=== PATIENT | male | born 1970 | race Caucasian/White ===

== ENCOUNTER 2024-10-01 06:14 | Day surgery (SDC) | payer OTHER ==
[2024-10-01] VITALS (199 sets, daily range): BP systolic 85–165; BP diastolic 59–97
[~2024-10-01] VITALS: Ht 167.6 cm; Wt 83.9 kg
--- NOTE | 2024-10-01 07:00 | NUR ---
Patient arrived to the [facility]R suite, identification and demographics confirmed. Patient to room 10, AAO and ambulatory vitals obtained, ID/allergy/fall bands placed, changed into hospital gown, procedure and timeline explained. All questions answered, patient presents no concerns at this time.
[2024-10-01] MEDS ORDERED: PANTOPRAZOLE SODIUM Sesquihydr 40 MG/TAB PO PRN (07:30)
[2024-10-01] MEDS ORDERED: cloNIDine HCL 0.1 MG/TAB PO PRN (07:30)
[2024-10-01] MEDS ORDERED: LACTATED RINGER'S 1,000 ML IV PRN ×3 (07:30→19:00)
[2024-10-01] MEDS ORDERED: SCOPOLAMINE 1.5 MG DIS TD PRN (07:30)
[2024-10-01] MEDS ORDERED: diazePAM 5 MG/TAB PO PRN ×2 (07:30→08:30)
[2024-10-01] MEDS ORDERED: CYANOCOBALAMIN 500 MCG/TAB ( B12) PO PRN (07:30)
[2024-10-01] MEDS ORDERED: FAMOTIDINE 20 MG/TAB PO PRN (07:30)
[2024-10-01] MEDS ORDERED: ALBUTEROL SULFATE 2.5 MG VIAL IN PRN (07:30)
--- NOTE | 2024-10-01 07:33 | NUR ---
Dr. Swanson telephoned with patient intake information including usage, dose, last dose/time taken and initial vital signs. Patient history and allergies reviewed with MD. Orders received for 10 mg PO Valium and 0.3 mg PO Clonidine now. Will reassess per protocol in 1.5 hours and update MD with assessment and vitals.
[2024-10-01] MEDS ORDERED: ASCORBIC ACID 4,000 MG in SODIUM CHLORIDE 0.9% 1,000 ML IV SCH (08:00)
[2024-10-01 08:22] LABS: BASO% 0.5 % (0-3); EOS% 7.6 % (0-8); HEMATOCRIT 45.4 % (39.0-50.0); HEMOGLOBIN 14.1 g/dl (14.0-18.0); IMMATURE GRANULOCYTES 0.2 % (0.0-5.0); LYMPH% 24.5 % (15-41); MEAN CELL VOLUME 96.2 fL CALC (80.0-100.0); MEAN CORPUSCULAR HGB 29.9 pG CALC (26.0-32.0); MEAN CORPUSCULAR HGB CONC 31.1 g/dL CAL (32.0-36.0); MONO% 8.2 % (2-13); NEUT# 3.6 thou/uL (1.82-7.42); RED BLOOD COUNT 4.72 mill/uL (4.70-6.10); RED CELL DISTRI WIDTH 12.3 % (11.5-15.5)
[2024-10-01] MEDS ORDERED: THIAMINE HCL 100 MG/ML 2ML VIAL IV PRN (09:00)
[2024-10-01] MEDS ORDERED: cloNIDine HYDROCHLORIDE 100 MCG/ML 10 ML INJ IV PRN (09:00)
[2024-10-01] MEDS ORDERED: NALTREXONE HCL 50 MG/TAB VT PRN (09:00)
[2024-10-01] MEDS ORDERED: PROPOFOL 10 MG/ML 100ML VIAL IV PRN (09:00)
[2024-10-01] MEDS ORDERED: ONDANSETRON HCl 4 MG/2 ML SDV IV PRN ×3 (09:00→19:00)
[2024-10-01] MEDS ORDERED: cloNIDine HCL 0.1 MG/TAB VT PRN (09:00)
[2024-10-01] MEDS ORDERED: MIDAZOLAM HCL 2 MG/2 ML VIAL IV PRN (09:00)
[2024-10-01] MEDS ORDERED: LIDOCAINE HCL 1% (10MG/ML) 100 MG/10 ML MDV IV PRN (09:00)
[2024-10-01] MEDS ORDERED: DEXAMETHASONE SODIUM PHOSPHATE PF 10 MG/ML SDV IV PRN ×2 (09:00→19:00)
[2024-10-01] MEDS ORDERED: ROCURONIUM BROMIDE 10 MG/ML 5ML VIAL IV PRN (09:00)
[2024-10-01] MEDS ORDERED: STERILE WATER FOR IRRIGATION 1,000 ML BTL IR PRN (09:00)
[2024-10-01] MEDS ORDERED: DiphenhydrAMINE HCL 50 MG/ML SDV IV PRN (09:00)
[2024-10-01] MEDS ORDERED: MAGNESIUM SULFATE HEPTAHYDRATE 100 ML IV PRN (09:00)
[2024-10-01] MEDS ORDERED: LIDOCAINE HCL 1% (10MG/ML) 100 MG/10 ML MDV VT PRN ×2 (09:00)
[2024-10-01] MEDS ORDERED: diazePAM 5 MG/TAB VT PRN (09:00)
[2024-10-01] MEDS ORDERED: SUCCINYLCHOLINE CHLORIDE 20 MG/ML 10ML VIAL IV PRN (09:00)
[2024-10-01] MEDS ORDERED: OCTREOTIDE ACETATE 100 MCG/VIAL SDV SC PRN (09:00)
[2024-10-01] MEDS ORDERED: PROPOFOL 100 ML IV PRN (09:00)
--- NOTE | 2024-10-01 09:00 | NUR ---
Patients vital signs within pre-treatment parameters for 1.5 hour recheck. No indication for additional Valium or Clonidine as patient is resting comfortably and vital signs are within range. Patient resting comfortably in bed. Easily aroused, maintains focus, and drifts back to sleep. No signs of active withdrawal or distress noted at this time. Continuous SPO2, rhythm, and respiratory monitoring initiated. IVF @ 250 mL/HR, room air, VSS.
[2024-10-01] MEDS ORDERED: LISINOPRIL20 M1 PO (09:04)
[2024-10-01] MEDS ORDERED: PHENYLEPHRINE HCL 10 MG/ML VIAL ONE (09:22)
[2024-10-01] MEDS ORDERED: SODIUM CHLORIDE 0.9% 250 ML IV ONE (09:22)
[2024-10-01 09:43] LABS: ALBUMIN 4.3 g/dL (3.2-5.0); BILIRUBIN, TOTAL 0.6 mg/dL (0.2-1.3); POTASSIUM 5.1 mmol/l (3.5-5.1)
--- NOTE | 2024-10-01 11:35 | NUR ---
Induction Note Patient to [facility]R procedure room. Time out performed at 1054. Patient placed on monitors, Brianna hugger, bilateral wrist restraints applied for ET tube protection. Versed 5mg given IV push at 1126 Tourniquet applied to right arm Lidocaine 100mg given [id number] IV push followed by Rocoronium 10mg at 1128 IV push and held for 90 seconds. Propofol bolus of 120mg given at 1129 IV push. Succinylcholine 80mg given IV push at 1130. Smooth intubation with 7.5 ETT. Positive CO2. Positive Auscultation for air exchange. Patient placed on ventilator for spontaneous ventilation. Placed on Propofol IV drip at 1131. OG inserted. Positive air on auscultation. Positive gastric content. Stomach washed at this time. Naltrexone 50mg given via OG tube with Clonidine 0.2 mg given via OG Tube. OG clamped for 45 minutes. Will monitor patient for symptoms of withdrawal and adjust propfol accordingly.
--- NOTE | 2024-10-01 12:15 | NUR ---
OG open note OG open at this time. Gastric content draining into drainage bag. OG to drain for 45 minutes. Propofol will be titrated down based on patient.
--- NOTE | 2024-10-01 13:00 | NUR ---
OG close note Stomach washed at this time. Naltrexone 50 mg with Clonidine 0.2 mg via OG tube. OG will be clamped for 45 minutes.
--- NOTE | 2024-10-01 14:30 | NUR ---
OG close note Stomach washed at this time. Naltrexone 50 mg with Clonidine 0.2 mg via OG tube. OG will be clamped for 45 minutes.
[2024-10-01] MEDS ORDERED: CLONIDINE0.1 MG PO (16:25)
[2024-10-01] MEDS ORDERED: KLONOPIN2 MG PO (16:25)
[2024-10-01] MEDS ORDERED: NALTREXONE50 MG PO (16:25)
--- NOTE | 2024-10-01 16:30 | NUR ---
OG close note Stomach washed at this time. Naltrexone 12.5 mg with Clonidine 0 mg via OG tube. OG will be clamped for 45 minutes.
--- NOTE | 2024-10-01 17:35 | NUR ---
Extubation note Closing medications given Benadryl 50mg IV push, Decadron 10mg IV push,Magnesium 4 grams IV, Zofran 8mg IV push, Octreotide 100mcg SC. Stomach washed out prior to extubation. Suctioned gastric content. OG removed. Patient extubated. Propofol Discontinued. Wrist restraints removed. Brianna hugger Removed. See ANR Moderate sedate recovery record for further notes and assessment.
[2024-10-01] MEDS ORDERED: LORazepam 2 MG/ML IV PRN ×2 (19:00)
[2024-10-01] MEDS ORDERED: ACETAMINOPHEN 1,000 MG/100 ML VIAL IV PRN (19:00)
[2024-10-01] MEDS ORDERED: HALOPERIDOL LACTATE 5 MG/ML SDV IV PRN (19:00)
[2024-10-01] MEDS ORDERED: ACETAMINOPHEN 500 MG TAB PO PRN (19:00)
[2024-10-01] MEDS ORDERED: PROMETHAZINE HCL 12.5 MG in SODIUM CHLORIDE 0.9% 50 ML IV PRN (19:00)
[2024-10-01] MEDS ORDERED: KETOROLAC TROMETHAMINE 30 MG/ML SDV IV PRN (19:00)
[2024-10-01] MEDS ORDERED: PROMETHAZINE HCL 25 MG in SODIUM CHLORIDE 0.9% 50 ML IV PRN (19:00)
--- NOTE | 2024-10-01 19:10 | NUR ---
RECEIVED REPORT FROM ANR NURSE. PT TRANSFERRED TO RM 89 VIA BED. PT IS SLEEPING AT THSI TIME BUT DOES CONTINUE TO MOVE AROUND IN BED. PT TOO DISORIENTED AND DROWSY TO FOLLOW COMMANDS AT THIS TIME. NASAL CANNULA IN PLACE ON 2L O2. PT BREATH SOUNDS CLEAR, RESPIRATIONS EVEN AND UNLABORED. SHREDDED FILLER CIGAR MAKER MACHINE AND ANIMAL MAINTENANCE SUPERVISOR DID REPOSTION PT IN BED TO SEMI FOLWERS. SUCTION USED TO CLEAR OUT ORAL CAVITY OF SECRETIONS. VSS. NO S/S OF DISTRESS. IVF RUNNING PER EMAR. IV SITES APPEAR HEALTHY AND INTACT. BED ALARM ON AND SAFETY PRECAUTIONS IN PLACE.
--- NOTE | 2024-10-01 20:29 | NUR ---
PT CONTINUES TO TOSS AND TURN IN BED, TRYING TO BRING LEGS OVER RAILINGS. DID ADMINISTERED MEDICAITN PER EMAR FOR ZOE[facility], PT IS TOO DISORIENTED TO FOLLOW COMMANDS AT THIS TIME OR REST. MEDICATION HAS NOT BEEN EFFECTIVE YET. BED ALARM IS ON AND SAFETY PRECAUTIONS IN PLACE.
[2024-10-01] MEDS ORDERED: PATIENT' OWN MED CONTROLLED 1 EA DOSE IV PRN (21:00)
[2024-10-01] MEDS ORDERED: clonazePAM 1 MG/TAB PO PRN (23:00)
[2024-10-01] MEDS ORDERED: cloNIDine HCL 0.1 MG/TAB PO SCH (23:00)
[2024-10-02] MEDS ORDERED: IPRATROPIUM-Albuterol 0.5MG-2.5MG/3 ML IN PRN (01:35)
--- NOTE | 2024-10-02 01:37 | NUR ---
PT C/O SOB. WHEEZING HEARD WHEN EXHALING AND PT IS VISIBLY USING ACCESSORY MUSCLES. RESPIRATIONS ELEVATED AND BREATHS ARE SHORT AND SHALLOW. PHYSICIAN WAS INFOMRED. TORB FOR DUONED AND CPAP. RESPIRATORY INFORMED, DUONEB WAS ADMINISTERED HOWEVER PT UNABLE TO KEEP MASK ON FOR CPAP TO BE EFFECTIVE. PT POSITIONED HIGH FOLWERS IN BED ON 4L O2 NC. BED ALARM ON AND SAFETY PRECAUTIONS IN PLACE.
[2024-10-02 03:50] VITALS: BP 164/98
[2024-10-02] MEDS ORDERED: cloNIDine HCL 0.1 MG/TAB PO PRN (04:00)
[2024-10-02] MEDS ORDERED: NALTREXONE HCL 50 MG/TAB PO SCH (04:00)
[2024-10-02] MEDS ORDERED: clonazePAM 1 MG/TAB PO PRN ×2 (04:00→08:00)
[2024-10-02 05:03] LABS: BASO% 0.1 % (0-3); HEMATOCRIT 42.6 % (39.0-50.0); HEMOGLOBIN 13.9 g/dl (14.0-18.0); IMMATURE GRANULOCYTES 0.2 % (0.0-5.0); LYMPH% 4.7 % (15-41); MEAN CELL VOLUME 94.9 fL CALC (80.0-100.0); MEAN CORPUSCULAR HGB CONC 32.6 g/dL CAL (32.0-36.0); NEUT# 12.79 thou/uL (1.82-7.42); RED BLOOD COUNT 4.49 mill/uL (4.70-6.10)
[2024-10-02 05:22] LABS: ALBUMIN 4.1 g/dL (3.2-5.0); BILIRUBIN, TOTAL 0.5 mg/dL (0.2-1.3); CREATININE 1.2 mg/dL (0.7-1.3); MAGNESIUM 2.5 mg/dL (1.6-2.3); POTASSIUM 4.3 mmol/l (3.5-5.1); TOTAL PROTEIN 6.6 g/dL (6.3-8.2)
--- NOTE | 2024-10-02 06:34 | NUR ---
PT REQUESITNG HIS INHALER. INFORMED PT ALL BELONGINGS ARE LOCKED IN LOCKER DOWNSTAIR AND OFFERED PT BREATHING TREATMENT IF FEELING SOB. PT REFUSED AT FIRST THEN AGREED TO GET TREATMENT. RT WAS NOTIFIED. PT IS LAYING IN BED SEMI FOWLERS, IVF RUNNING PER EMAR. BED ALARM ON AND SAFETY PRECAUTIONS IN PLACE.
[2024-10-02] MEDS ORDERED: ACETAMINOPHEN 325 MG/TAB PO SCH (08:00)
[2024-10-02] MEDS ORDERED: PANTOPRAZOLE SODIUM Sesquihydr 40 MG/TAB PO SCH (08:00)
[2024-10-02] MEDS ORDERED: cloNIDine HCL 0.1 MG/TAB PO SCH ×2 (08:00→10:30)
--- NOTE | 2024-10-02 08:45 | NUR ---
PATIENT A/O X2; ROOM AIR; BREATHING UNLABORED AND EVEN; DENIED ANY PAIN; DENIED ANY N/D/V AT THIS TIME; NO S.S OF DISTRESS; PATIENT AMBULATED TO BATHROOM WITH STAND BY ASSIT; IV SITE CLEAN AND INTACT RUNNING WITH LR @100; NO COMPLAINTS; ENCOURAGED TO EAT BREAKFAST; TOLERATED HIS MEDICATIONS WITH NO ISSUES; CALL LIGHT WITHIN REACH, VERBALIZED UNDERSTADNING ON HOW TO USE, LABS WITHIN RANGE FOR PROGRAM; PROVIDER INFORMED OF PATINET STATUS; NO COMPLAINTS; SAFETY MEASURES IN PLACE
[2024-10-02] MEDS ORDERED: MAGNESIUM OXIDE 400 MG/TAB PO PRN (09:00)
[2024-10-02] MEDS ORDERED: Cholecalciferol 2,000 UNIT/TAB PO PRN (09:00)
[2024-10-02] MEDS ORDERED: ACETAMINOPHEN 500 MG TAB PO PRN (09:00)
[2024-10-02 10:25] VITALS: BP 144/90
--- NOTE | 2024-10-02 11:05 | NUR ---
patient ambulated to bathroom and had bowel movement; iv site clean and intact running with LR @100; no complaints
--- NOTE | 2024-10-02 12:13 | NUR ---
PATIENT HAD HIS THIRD BOWEL MOVEMENT OF DIARRHEA; CALLED PROVDIER FOR ORDER; DENEID ANY PAIN; DENIED ANY N/V; PATEINT STATES HE NEED ANOTHER BREATHING TREATMENT CALLED RT FOR IT; NO S.S OF DISTRESS AT THIS TIME; IV SITE CLEAN AND INTACT; ENCOURAGED PATINET TO SIT ON THE SIDE OF BED AND TO WEAR O2 UNTIL RT GETS HERE; NO VISUAL S/S OF DISTRESS; CALL LIGHT WITHIN REACHL BED IN LOWEST POSTION;SAFETY MEASURES IN PLACE
--- NOTE | 2024-10-02 13:00 | NUR ---
PATIENT IN SHOWER AT THIS TIME
[2024-10-02] MEDS ORDERED: BISMUTH SUBSALICYLATE 262 MG CHW PO SCH (13:30)
--- NOTE | 2024-10-02 15:36 | NUR ---
PATIENT TOLERATED DISCHARGE MEDICATIONS
--- NOTE | 2024-10-02 16:26 | NUR ---
IV site discontinued, cath intact. No edema , no redness, voices no discomfort. Discharge instructions given. Patient verbalizes understanding of same. Discharged in stable condition via Ambulatory to Home with family. All belongings sent with pt.
== END 2024-10-02 16:20 | disposition home or self-care (01) | DRG 897 ==
LOC: MS2 06:14 → ANR 06:14 → MS2 10-02 11:20 → ANR 10-02 16:20
PROVIDERS: ATTEND Anesthesiology
DX: F11.20 Opioid dependence, uncomplicated (principal)
CPT/HCPCS: J1100; J2060; J2354; J3475; J3490